=== PATIENT | female | born 1970 | race Caucasian/White ===

== ENCOUNTER 2016-12-13 10:59 | Emergency (ER) | payer BC ==
[~2016-12-13] VITALS: Ht 170.2 cm; Wt 106.6 kg
[~2016-12-13 10:59] MED LIST: IBUP-103 PO; PRLSR20 PO
[2016-12-13 11:02] VITALS: TEMP 36.6; Ht 170.2 cm; Wt 106.6 kg
[2016-12-13] MEDS ORDERED: DiphenhydrAMINE HCL 50 MG/ML VIAL IV STA (11:27)
[2016-12-13] MEDS ORDERED: METOCLOPRAMIDE HCL INJ 5 MG/ML 2 ML VIAL IV STA (11:27)
[2016-12-13] MEDS ORDERED: KETOROLAC TROMETHAMINE 30 MG/ML VIAL IV STA (11:27)
[2016-12-13] MEDS ORDERED: RANITAB33 PO (11:28)
[2016-12-13] MEDS ORDERED: SODIUM CHLORIDE 0.9% 1000ML 1,000 ML IV ONE (11:30)
[2016-12-13 11:35] VITALS: O2SAT 99
[2016-12-13 12:19] LABS: BASO % 0.2 %; BASO ABS # 0.02 K/uL (0-0.2); COMPLETE YES; EOS % 0.8 %; HEMATOCRIT 39.4 % (37-47); IG% 0.3 %; LYMPH % 36.6 %; LYMPH ABS # 4.31 K/uL (1.2-3.4); MEAN CELL VOLUME 86.4 fL (80-100); MEAN CORPUSCULAR HEMOGLOBIN 28.7 pg (25-34); MEAN CORPUSCULAR HGB CONC 33.2 g/dl (32-36); MEAN PLATELET VOLUME 10.3 fL (7.4-10.4); MONO % 6.3 %; NEUT % 55.8 %; PLATELET COUNT 264 K/uL (130-400); RED BLOOD COUNT 4.56 M/uL (4.2-5.4); WHITE BLOOD COUNT 11.79 K/uL (4.8-10.8)
[2016-12-13 12:37] LABS: ALT/SGPT 26 U/L (12-78); BLOOD UREA NITROGEN 21 mg/dl (7-18); BUN/CREATININE RATIO 25.2 (10-20); CALCIUM 8.8 mg/dl (8.5-10.1); CARBON DIOXIDE 26 mmol/L (21-32); CHLORIDE 106 mmol/L (98-107); CREATININE 0.85 mg/dl (0.60-1.20); GLUCOSE 78 mg/dl (70-99); POTASSIUM 3.6 mmol/L (3.5-5.1); SODIUM 139 mmol/L (136-145)
[2016-12-13 12:40] LABS: ALKALINE PHOSPHATASE 89 U/L (45-117); AST/SGOT 16 U/L (15-37)
[2016-12-13 12:46] LABS: URINE APPEARANCE CLEAR (CLEAR); URINE BILIRUBIN NEG (NEG); URINE COLOR DK YELLOW; URINE NITRITE NEG (NEG); URINE SPECIFIC GRAVITY 1.032 (1.000-1.030); UROBILINOGEN NEG (NEG)
[2016-12-13 12:48] LABS: MANUAL MICROSCOPIC REQUIRED? NO; REVIEW REQ? NO
[2016-12-13 13:53] VITALS: BP 139/75; PULSE 61; O2SAT 97
--- NOTE | 2016-12-13 23:09 | EMERGENCY ROOM VISIT NOTE ---
ED Visit Note First contact with patient: 11:03 Chief Complaint: I think I might be having an allergic reaction. History of Present Illness: Ms. Springer is a 46-year-old white female who ambulates into the ED accompanied by her complaining of a possible allergic reaction. On Tuesday, 2 days ago, she was having an MRI with and without contrast to evaluate her pituitary gland for elevated prolactin levels. She reports starting the IV contrast portion of her CT she developed shortness of breath, nasal congestion and a headache. She reports the MRI was stopped immediately and she received multiple injections of Benadryl. She reports after being discharged from the [facility] she was feeling slightly better but was still experiencing headache. She reports Tuesday once again she was feeling slightly better but continued to have her headache. Today she woke from sleep and once again was feeling slightly better and decided to go to work. When she went to work she continued to have her headache and then had a 20 minute episode of dizziness. During this episode of dizziness she had tingling sensations of the tongue and lips. Currently she is complaining of a bitemporal parietal headache area she describes her pain as an achy sensation. She rates her discomfort 5/10. The pain is nonradiating. She has not identified any aggravating or alleviating factors related to the pain. She has not taken any medications for pain prior to arrival at the hospital. Currently she is having no associated symptoms and she denies dizziness, lightheadedness, visual changes, hearing changes, difficult speaking, difficulty swallowing, difficulty ambulating/coronary body movements, neck pain/stiffness, upper respiratory tract symptoms, sinus congestion, sore throat, difficulty speaking, cough, wheezing, shortness of breath, chest pain, palpitations, abdominal pain, nausea, vomiting, joint pains , skin eruptions, skin color changes. Review of Systems: As noted above in history of present illness. All body systems were reviewed and found to be negative as noted above. Past Medical History: As previously noted, unspecified skin condition, asthma and unspecified knee surgery Current Medications: Patient denies. Allergies to Medications: Sulfa. Social History: Patient is currently employed; she feels safe in her home environment; she denies tobacco use. Physical Examination: Vital Signs: Date Time Temp Pulse Resp B/P (MAP) Pulse Ox O2 Delivery O2 Flow Rate FiO2 12/13/16 13:53 61 139/75 97 12/13/16 12:55 60 20 154/86 100 Room Air 12/13/16 12:40 61 12/13/16 11:40 70 20 145/71 99 Room Air 75 134/83 85 149/93 12/13/16 11:35 99 Room Air 12/13/16 11:07 98 Room Air 12/13/16 11:02 36.6 77 18 164/99 98 Room Air GENERAL: 46-year-old female in mild distress due to symptoms, nontoxic-appearing , afebrile and hemodynamically stable. NEUROLOGICAL: Awake, alert and oriented to person, place and time. Answering questions appropriately and following commands. Normal gait. Good hand eye coordination. Romberg test is slightly unsteady but negative. Pronator drift test is negative. Cranial nerves II through XII grossly intact. Short-term and long-term recall. SKIN: Warm, dry and pink. No soft tissue eruptions noted. HEENT: Atraumatic and normocephalic. PERRLA. EOMI without nystagmus. Sclera white and conjunctiva pink. No tenderness or erythema over the sinuses. Tympanic membranes appear normal without erythema or bulging. No drainage from naris. Oral cavity moist and pink. Tongue is not swollen. Lips are not swollen. Pharynx is nonerythematous or edematous. Speech normal. No lymphadenopathy. No auditory or skull tore stridor. Trachea midline. No jugular venous distention. BACK: No tenderness over the bony spine. No CVA tenderness. THORAX: Lungs sounds are clear to auscultation and equal bilaterally with symmetrical chest wall. No wheezing, rales or rhonchi. HEART: Regular rate and rhythm. No gallops, rubs or murmurs are appreciated. ABDOMEN: Flat, soft and nontender. Positive bowel sounds in all quadrants. No guarding, rigidity or organomegaly. EXTREMITIES: Moves all extremities well on command and with purpose. All distal neurovascular statuses are intact and equal bilaterally. ED Course: Patient is assessed as noted above. Patient's medication list was reviewed. Laboratory Testing: Test 12/13/16 12:00 12/13/16 12:15 Range/Units White Blood Count 11.79 4.8-10.8 K/uL Red Blood Count 4.56 4.2-5.4 M/uL Hemoglobin 13.1 12.0-16.0 g/dL Hematocrit 39.4 37-47 % Mean Corpuscular Volume 86.4 80-100 fL Mean Corpuscular Hemoglobin 28.7 25-34 pg Mean Corpuscular Hemoglobin Concent 33.2 32-36 g/dl Platelet Count 264 130-400 K/uL Mean Platelet Volume 10.3 7.4-10.4 fL Neutrophils (%) (Auto) 55.8 % Lymphocytes (%) (Auto) 36.6 % Monocytes (%) (Auto) 6.3 % Eosinophils (%) (Auto) 0.8 % Basophils (%) (Auto) 0.2 % Neutrophils # (Auto) 6.59 1.4-6.5 K/uL Lymphocytes # (Auto) 4.31 1.2-3.4 K/uL Monocytes # (Auto) 0.74 0.11-0.59 K/uL Eosinophils # (Auto) 0.10 0-0.5 K/uL Basophils # (Auto) 0.02 0-0.2 K/uL RDW Standard Deviation 49.5 36.4-46.3 fL RDW Coefficient of Variation 15.4 11.5-14.5 % Immature Granulocyte % (Auto) 0.3 % Immature Granulocyte # (Auto) 0.03 0.00-0.02 K/uL Sodium Level 139 136-145 mmol/L Potassium Level 3.6 3.5-5.1 mmol/L Chloride Level 106 98-107 mmol/L Carbon Dioxide Level 26 21-32 mmol/L Anion Gap 7.0 3-11 mmol/L Blood Urea Nitrogen 21 7-18 mg/dl Creatinine 0.85 0.60-1.20 mg/dl Est Creatinine Clear Calc Drug Dose 106.1 ml/min Estimated GFR () 96.6 Estimated GFR (Non- 83.3 BUN/Creatinine Ratio 25.2 10-20 Random Glucose 78 70-99 mg/dl Calcium Level 8.8 8.5-10.1 mg/dl Total Bilirubin 0.2 0.2-1 mg/dl Direct Bilirubin < 0.1 0-0.2 mg/dl Aspartate Amino Transf (AST/SGOT) 16 15-37 U/L Alanine Aminotransferase (ALT/SGPT) 26 12-78 U/L Alkaline Phosphatase 89 45-117 U/L Total Protein 6.9 6.4-8.2 gm/dl Albumin 3.8 3.4-5.0 gm/dl Urine Color DK YELLOW Urine Appearance CLEAR CLEAR Urine pH 6.0 4.5-7.5 Urine Specific [place] 1.032 1.000-1.030 Urine Protein NEG NEG Urine Glucose (UA) NEG NEG Urine Ketones NEG NEG Urine Occult Blood NEG NEG Urine Nitrite NEG NEG Urine Bilirubin NEG NEG Urine Urobilinogen NEG NEG Urine Leukocyte Esterase NEG NEG EKG: Was read by myself and reviewed with Dr. Barry shows normal sinus rhythm with a ventricular rate of 62 bpm. Normal axis, intervals and complexes. No acute ST changes indicating ischemia, injury or infarction. No previous to compare. Patient was hydrated with normal saline and received 30 mg of Toradol IV, 10 mg of Reglan IV and 25 mg of Benadryl IV for her symptoms. Patient was reassessed multiple times during her stay in the emergency department. Patient's case was reviewed with Dr. Barry; we agreed on diagnostic approach, treatment, disposition and plan. Patient was educated about today's findings and instructed on her treatment plan ; she verbalized understanding and agreement with this plan. Clinical Impression: Headache. Recent MRI contrast reaction. Decision-Making: Initially my differential diagnosis I considered contrast reaction, sinusitis, primary headache, meningitis and other causes. Disposition: Patient discharged home in stable condition accompanied by her ; prior to departure she was reassessed and subjectively reported she was feeling better and rated her overall discomfort 4/10. Plan: Patient was encouraged to rest for the next 48 hours without strenuous activity. Patient was encouraged to stay well-hydrated with increased clear fluids. Patient was encouraged to alternate ibuprofen and acetaminophen as needed Patient was encouraged to follow-up with her PCP for recheck in 2-3 days. Patient was signed off of work for 2 days. Patient was encouraged return ED thing headaches, vomiting, fevers, return of lips/tongue swelling/tingling, shortness of breath, vomiting, any abnormal neurological symptoms or any new/concerning symptoms.
== END 2016-12-13 13:54 | disposition home or self-care (01) ==
LOC: C.EDB 11:00 → C.EDC 13:54
DX: R51 Headache (principal); T50.8X5A Adverse effect of diagnostic agents, initial encounter